=== PATIENT | female | born 1960 | race Caucasian/White ===

== ENCOUNTER 2019-10-28 17:34 | Emergency (ER) | payer MEDICAID, SELFPAY ==
[2019-10-28 17:35] VITALS: BP 119/92; PULSE 80; RESP 18; TEMP 36.9; O2SAT 96; BMI 19.5
--- NOTE | 2019-10-28 17:49 | XR_ITS ---
PROCEDURE: XR CHEST 2V CLINICAL HISTORY: sob COMPARISON: No exams were available for comparison FINDINGS: Moderate emphysematous changes are seen with hyperexpansion lung daniels and flattening and depression of the hemidiaphragms. Patchy ill-defined opacities are seen at the left base and left costophrenic angle. Otherwise the lung daniels are clear. The cardiac silhouette is normal. There is some attenuation of the pulmonary vasculature in the lung periphery. The bony thorax is normal for age. IMPRESSION: Moderate COPD, suspect minimal left lower lobe pneumonia versus atelectasis and suggest clinical correlation. Dictated by: Dr. Miguel Henao MD 10/28/2019 19:[address] Miguel Henao MD in [place] 10/28/2019 19:24
--- NOTE | 2019-10-28 17:50 | HMH.EDSOB ---
ED Disposition Clinical Impression: Acute exacerbation of chronic obstructive airways disease Disposition: Home, Self-Care Condition on Discharge: Good Instructions: DI for Chronic Bronchitis Prescriptions: methylPREDNISolone [Medrol] 4 mg PO DIRECTED #21 pack Prescription Printed Referrals: PCP,No [Primary Care Provider] - - Critical Care Critical Care Time: No Attestation: On , the high probability of a clinically significant, sudden or life threatening deterioration of the following system(s) required my full and direct attention, intervention and personal management. The time I documented below is in addition to time spent performing reported procedures but includes the following listed in this critical care notation. Medical Decision Making - Medical Records Medical records reviewed: Yes: I reviewed the patient's medical records. - Dwayne Inquiry Pt receiving controlled substance: No Vital Signs: 10/28/19 17:35 10/28/19 17:59 Temperature 98.5 F Temperature Source Oral Pulse Rate [Right Radial] 80 80 Respiratory Rate 18 Blood Pressure [Right Arm] 119/92 H 123/80 Blood Pressure Mean [Right Arm] 101 94 Blood Pressure Source [Right Arm] Automatic Cuff Automatic Cuff Blood Pressure Position [Right Arm] Sitting Sitting 02 Sat by Pulse Oximetry 96 97 Oxygen Delivery Method Room Air Room Air - Lab Data Lab Results 10/28/19 18:00: WBC 12.2 H, RBC 4.34, Hgb 13.0, Hct 38.6, MCV 89.0, MCH 29.9, MCHC 33.6, RDW 13.9, Plt Count 354, MPV 7.2 L, Neut % (Auto) 72.9, Lymph % (Auto) 19.6, [place] % (Auto) 4.9, Eos % (Auto) 2.1, Baso % (Auto) 0.4, Neut # (Auto) 8.9 H, Lymph # (Auto) 2.4, [place] # (Auto) 0.6, Eos # (Auto) 0.3, Baso # (Auto) 0.1 10/28/19 18:00: Sodium 140, Potassium 3.6, Chloride 104, Carbon Dioxide 29, Anion Gap 10.6, BUN 16, Creatinine 0.60, Estimated Creat Clear 79, Estimated GFR 102, Est GFR ( Amer) 123, Glucose 103 H, Calcium 9.1, Total Bilirubin 0.4, AST 25, ALT 21, Alkaline Phosphatase 130 H, Troponin I < 0.01, NT-Pro-B Natriuret Pep 92.6, Total Protein 7.7, Albumin 4.1, Globulin 3.6 H, Albumin/Globulin Ratio 1.1 Result diagrams: 10/28/19 18:00 10/28/19 18:00 Orders (Tests/Meds): ED MEDICATIONS Discontinued Medications Generic Name Dose Route Start Last Admin Trade Name Andrzej PRN Reason Stop Dose Admin Dexamethasone Sodium Phosphate 8 mg 10/28/19 18:28 Decadron 4mg/Ml 1ml Vial IM 10/28/19 18:29 ONCE ONE Ketorolac Tromethamine 60 mg 10/28/19 18:27 Toradol 60mg/2ml Vial IM 10/28/19 18:28 ONCE ONE ORDERS Category Date Time Status XR chest 2V Stat Exams 10/28/19 17:49 Taken Arterial Blood Gas Routine RT 10/28/19 18:06 Received Arterial Blood Gas Stat RT 10/28/19 18:05 Ordered - Radiology Data #1 Image(s): Chest Image Reviewed: Yes I reviewed the patient's radiology image Preliminary Findings: Normal/NAD emphysematous changes; no acute process Resp/SOB HPI - General Chief Complaint: Shortness of Breath/Dyspnea Stated Complaint: SOB Time Seen by Provider: 10/28/19 17:50 Mode of Arrival: EMS Limitations: No Limitations Description of Symptoms (Recalled from ER Triage Doc. 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 Pt reports this was intermittent. Pt denies SOA, cough, fever. Pt reports hx of COPD. EMS reports pt was 97% on RA upon their arrival, pt was given a duoneb in route to hospital - History of Present Illness This is a 5-year-old female who presents with intermittent shortness of breath x1 week. Patient reports that her apartment is small poorly ventilated and very warm due to the ambient temperature and lack of central air. She reports occasional wheezing and shortness of breath which is improved nearly resolved with bronchodilators administered by EMS. She denies any chest pain or lower extremity edema. She als
--- NOTE | 2019-10-28 17:51 | PC.NURSE ---
notified RT and Rad of new orders on pt
[2019-10-28 17:59] VITALS: BP 123/80; PULSE 80; O2SAT 97
--- NOTE | 2019-10-28 18:00 | PC.NURSE ---
RT at bedside
--- NOTE | 2019-10-28 18:05 | PC.NURSE ---
Pt to rad.
[2019-10-28 18:14] LABS: Basophils # 0.1 K/mm3 (0-0.2); Basophils % 0.4 % (0.1-2.0); Eosinophils # 0.3 K/mm3 (0.0-0.4); Eosinophils % 2.1 % (0.1-12.0); Hematocrit 38.6 % (37.0-47.0); Lymphocytes # 2.4 K/mm3 (0.7-4.5); Lymphocytes % 19.6 % (10-50); Mean Corpuscular HGB Conc 33.6 g/dL (31.8-35.4); Mean Corpuscular Hemoglobin 29.9 pg (27.0-31.2); Mean Platelet Volume 7.2 fl (7.4-10.4); Monocytes # 0.6 K/mm3 (0.1-1.0); Monocytes % 4.9 % (1.7-9.3); Neutrophils # 8.9 K/mm3 (1.8-7.8); Neutrophils % 72.9 % (37.0-80.0); Platelet Count 354 K/mm3 (142-424); Red Blood Count 4.34 M/mm3 (4.20-5.40); Red Cell Distribution Width 13.9 % (11.5-17.5); White Blood Count 12.2 K/mm3 (4.8-10.8)
[2019-10-28 18:19] LABS: Alanine Aminotransferase 21 U/L (12-78); Albumin Level 4.1 g/dl (3.5-5.0); Albumin/Globulin Ratio 1.1 (1.1-1.8); Alkaline Phosphatase 130 U/L (38-126); Anion Gap 10.6 mEq/L (5-15); Aspartate Amino Transferase 25 U/L (14-36); Bilirubin,Total 0.4 mg/dl (0.2-1.3); Blood Urea Nitrogen 16 mg/dl (7-17); Calcium 9.1 mg/dl (8.4-10.2); Carbon Dioxide 29 mmol/L (22.0-30.0); Chloride 104 mmol/L (98-107); Creatinine Clearance Estimated 79 mL/min (50-200); Estimated Glomerular Filt Rate 102 ml/min (>60); GFR (African American) 123 ML/MIN (>60); Globulin 3.6 g/dL (1.3-3.2); Glucose 103 mg/dl (74-100); Potassium 3.6 mmoL/L (3.5-5.1); Sodium 140 mmol/L (136-145); Total Protein,Serum 7.7 g/dl (6.3-8.2)
[2019-10-28 18:31] LABS: NT Pro Brain Natriuretic Pep. 92.6 pg/mL (0-125); Troponin I < 0.01 ng/ml (0.00-0.034)
[2019-10-28 18:55] VITALS: BP 123/80; PULSE 71; RESP 18; TEMP 36.9; O2SAT 98
[2019-10-29 08:20] LABS: ABG Base Excess -4.7 mmol/L (-2.4-2.3); ABG HCO3 19.4 mmhg (22.0-26.0); ABG Oxygen Saturation 93 % (90-100); ABG PH 7.44 mmol/L (7.35-7.45); ABG TCO2 20.3 mmhg (23-27)
--- NOTE | 2019-10-29 08:35 | PC.NURSE ---
10/28/2019 WHILE CHECKING ON ER TEMP STATION ,I SAW THIS PT SITTING IN THE ER WAITING AREA. I WAS TOLD THAT THIS PT WAS WAITING ON A RIDE.PT IS FROM [place] AND SHE STATED THAT SHE WAS WAITING FOR HER DAUGHTER TO TAKE HER HOME. I WAS TOLD THAT [facility] HAD BEEN CALLED TO TRY TO LOCATE DAUGHTER SINCE PT COULD NOT REMEMBER DAUGHTERS PHONE NUMBER AND THERE WERE NO PHONE NUMBERS INCLUDED ON THIS PTS CHART OF NEXT OF KIN OR WHO TO CONTACT. I CALLED [facility] AND WAS TOLD OFFICER NOT AVAILABLE TO CHECK ON DAUGHTER TO HAVE HER COME TO [facility] BUT THAT THEY HAD FOUND THE DAUGHTERS NUMBER IN THEIR SYSTEM AND HAD NO ANSWER AND THAT THE VOICEMAIL BOX WAS FULL. PERSON AT [facility] STATED WOULD SEND OFFICER WHEN HE WAS AVAILABLE....WHILE ON THE PHONE WITH THEM THERE WAS ANOTHER CALL THAT CAME IN THAT THE DISPATCH SAID WAS FROM THE PHONE NUMBER THEY HAD TRIED FOR THIS PT....SHE STATED THAT THE CALLER TOLD HER THAT THE DAUGHTER WAS ON THE WAY TO PICK HER MOTHER UP.AFTER FEW HOURS ,PT NOTED TO STILL BE IN THE LOBBY.WHILE TALKING WITH HER, SHE SAID SHE THOUGHT SHE HAD TOLD HER DAUGHTER THAT SHE WAS COMING TO [facility]....SHE STATED THAT SHE SOMETIMES GOES TO [facility]. [id number] I SPOKE TO PERSONNEL AT [facility] TO TRY TO GET ANOTHER NAME OR NUMBER THAT I COULD POSSIBLY CALL FOR THIS PT.THEY WERE ABLE TO GET ME THE PHONE NUMBER OF HER MOM.WHEN THAT NUMBER WAS ATTEMPTED ,IT WAS LIKE THE PHONE CALL WAS DISCONNECTED AND WOULD NOT GO THROUGH. I THEN CALLED [facility] AND WAS TOLD THE OFFICER DID GO TO DAUGHTERS APT AND SHE WAS ASLEEP.DAUGHTER TOLD OFFICER THAT SHE COULD NOT PICK HER UP BECAUSE SHE HAS NO CAR AND THAT SHE WAS GOING TO GO BACK TO SLEEP....I TOLD OF THESE DIFFERENT ATTEMPTS.I INFORMED HER THAT IF SHE STILL NEEDED A RIDE BY 7OR 8 ,I COULD SPEAK WITH PERSON IN CARE MANAGEMENT CONCERNING RIDE FOR THIS PT TO RETURN HOME. I SPOKE WITH DIETARY ABOUT GETTING BREAKFAST FOR THIS PT.THEY DID TAKE BREAKFAST TRAY TO HER AT APPROX.[id number] , I DID SPEAK WITH WARNER AND STACIE PEREZ IN CARE MANAGEMENT CONCERNING THIS PT AND HER INABILITY TO GET A RIDE. CHRIS STATED THAT SHE WOULD WORK ON GETTING HER A WAY BACK HOME.
--- NOTE | 2019-10-29 10:37 | SW/DCPLANNER ---
SET UP TRANSPORTATION WITH [facility] FOR THIS PATIENT TO GO [place] WHERE SHE LIVES....
== END 2019-10-28 18:57 | disposition home or self-care (01) ==
PROVIDERS: Emergency Provider Emergency Medicine
DX: J44.9 Chronic obstructive pulmonary disease, unspecified (principal); F17.210 Nicotine dependence, cigarettes, uncomplicated
CPT/HCPCS: 71046; 80053; 82803; 83880; 84484; 85025; 96372; 99283

== ENCOUNTER 2020-01-10 12:38 | Emergency (ER) | payer MEDICAID, SELFPAY ==
[2020-01-10 12:53] VITALS: BP 139/79; PULSE 76; RESP 18; TEMP 37.3; O2SAT 98; BMI 19.5
--- NOTE | 2020-01-10 13:07 | XR_ITS ---
PROCEDURE: XR CHEST 2V Referring Doctor: Shekhar Richmond Patient Age:59Y CLINICAL HISTORY: Cough smoker. Rule out Cov id COMPARISON: CR [id number] LUMBAR SPINE 5 VIEWS from 09/02/2016 CR XR CHEST 2V from 10/28/2019 CR XR SHOULDER LT MIN 2V from 01/10/2020 FINDINGS: Single-view chest performed today and compared to October 2019 CXR There is underlying COPD and emphysematous changes. With generous hyperexpansion bilateral. Heart is normal in size jude and mediastinal structures normal. Normal vascularity. October 2019 study showed coarsening markings at the left lung base. We again see the similar appearance on previous CXR from October. These markings appear slightly more pronounced at the left base today-I suspect is mainly due to the higher contrast technique but there may be subtle progression of interstitial fibrotic changes are and/or interstitial disease since October. There is also more evident blunting at the left CP angle which are reflects small left pleural effusion or some progressive mild pleural thickening. Follow-up PA and lateral chest suggested when feasible There is subtle coarsening of interstitial pattern at the right mid lung-this is in part due to the overlying breast density along with chronic changes but again difficult to exclude a very subtle early infiltrate here since this is a subtle change since prior CXR. IMPRESSION: 1..COPD. Emphysematous changes 2.. Fibrotic changes left lung base were seen in October CXR. Findings today are similar to perhaps slightly more pronounced-in part due to to technique; but question/suspect slight progression of interstitial fibrotic changes or disease here as well, since October 3..Also additional blunting left CP angle reflecting small pleural effusion or additional pleural thickening 4.. Subtle accentuation markings at the right mid lung most likely due to overlapping breast density, but with similar considerations Dictated by: Roberth Mcmahan MD 01/10/2020 14:53 Roberth Mcmahan MD in [place] 01/10/2020 14:53
--- NOTE | 2020-01-10 13:11 | XR_ITS ---
PROCEDURE: XR SHOULDER LT MIN 2V Referring Doctor: Shekhar Richmond Patient Age:59Y CLINICAL INDICATION: pain Left shoulder pain and stiffness but chronic COMPARISON: No exams were available for comparison FINDINGS: Three views left shoulder performed The left shoulder appears intact. The glenohumeral joint relationships are normal. The humeral head and neck intact. Scant hypertrophic changes at the at the well maintained AC joint. Scapula unremarkable. [place] left lung clear IMPRESSION: Left shoulder intact. Glenohumeral joint intact. Only note perhaps scant early hypertrophic changes of developing about the AC joint Dictated by: Roberth Mcmahan MD 01/10/2020 15:02 Roberth Mcmahan MD in [place] 01/10/2020 15:02
--- NOTE | 2020-01-10 13:11 | XR_ITS ---
PROCEDURE: XR HIP RT 2-3V W/PELVIS Referring Doctor: Shekhar Richmond Patient Age:59Y CLINICAL INDICATION: chronic pain COMPARISON: CR SACC SACRUM AND COCCYX from 09/02/2016 FINDINGS: AP and frog-leg view right hip along with AP pelvis performed. No fracture or dislocation is evident. No significant degenerative change. No lytic or blastic change.. The right femoral head and neck are intact and the hip joint spaces well maintained. Of fairly adequate right femoral head by the acetabulum.. Femoral head of normal density and contour. Sacrum SI joints and osseous pelvis appear intact. Scattered phleboliths lower pelvic basin. IMPRESSION: No a remarkable findings. Right hip intact with hip joint space well maintained. Right femoral head and neck intact AP pelvis intact Dictated by: Roberth Mcmahan MD 01/10/2020 14:41 Roberth Mcmahan MD in [place] 01/10/2020 14:41
--- NOTE | 2020-01-10 13:22 | HMH.EDGENADL ---
ED Disposition Clinical Impression: Acute exacerbation of chronic obstructive airways disease, Left shoulder pain Clinical Impression: (Ruled Out): Right shoulder pain Disposition: Home, Self-Care Condition on Discharge: Fair Referrals: PCP,No [Primary Care Provider] - - Critical Care Critical Care Time: No Attestation: On 01/10/20, the high probability of a clinically significant, sudden or life threatening deterioration of the following system(s) required my full and direct attention, intervention and personal management. The time I documented below is in addition to time spent performing reported procedures but includes the following listed in this critical care notation. Medical Decision Making - Medical Records Medical records reviewed: Yes: I reviewed the patient's medical records. - Dwayne Inquiry Pt receiving controlled substance: No Vital Signs: 01/10/20 12:53 Temperature 99.1 F Temperature Source Oral Pulse Rate [Radial] 76 Respiratory Rate 18 Blood Pressure [Right Arm] 139/79 Blood Pressure Mean [Right Arm] 99 Blood Pressure Position [Right Arm] Sitting 02 Sat by Pulse Oximetry 98 Oxygen Delivery Method Room Air - Lab Data Lab results reviewed: Yes: I reviewed the patient's lab results. Orders (Tests/Meds): ED MEDICATIONS Discontinued Medications Generic Name Dose Route Start Last Admin Trade Name Freq PRN Reason Stop Dose Admin Albuterol/Ipratropium 2 puff 01/10/20 13:09 01/10/20 13:18 Combivent 20mcg/100mcg Respimat Inhaler IH 01/10/20 13:10 2 puff ONCE ONE Administration Ketorolac Tromethamine 30 mg 01/10/20 13:12 01/10/20 13:18 Ketorolac 30mg/Ml Vial IM 01/10/20 13:13 30 mg ONCE ONE Administration Methylprednisolone Sodium Succinate 125 mg 01/10/20 13:09 01/10/20 13:18 Methylprednisolone Sod Succ 125mg Vial IM 01/10/20 13:10 125 mg ONCE ONE Administration Miscellaneous 1 unit 01/10/20 13:09 01/10/20 13:19 Aerochamber/Optihaler MC 01/10/20 13:10 1 unit ONCE ONE Administration ORDERS Category Date Time Status Hip XR right minimum 2 views [XR hip RT 2-3V w/pelvis] Exams 01/10/20 13:11 Ordered Stat Shoulder XR left minimum 2 views [XR shoulder LT min 2V Exams 01/10/20 13:11 Ordered ] Stat XR chest 2V Stat Exams 01/10/20 13:07 Ordered Covid-19 Nasal PCR ([facility]) Routine Lab 01/10/20 13:31 Received Medical Decision Narrative: She is a 59-year-old female who presents the emergency department today with flulike symptoms and chronic pain. Well-appearing on exam. Stable on arrival. X-rays, Toradol, steroids, COVID swab ordered. Skill skeletal x-ray is nonactionable. Chest x-ray concerning for possible left lower lobe consolidation. Given prescription for amoxicillin and Medrol Dosepak. Return precautions given. General Adult HPI - General Chief complaint: PAIN Stated complaint: pain all over body Time Seen by Provider: 01/10/20 13:00 Mode of Arrival: Ambulatory Limitations: No Limitations Description of Symptoms (Recalled from ER Triage Doc. by RN): TO ED PER PVT CAR WITH MULTIPLE C/O. PT C/O ANTONETTE SHOULDER PAIN, RT HIP PAIN AND PAIN ALL OVER X YEARS BUT WORSE OVER THE LAST WEEK STATES UNABLE TO SLEEP DUE TO PAIN. PT ALSO, C/O RUNNY NOSE, COUGH I THINK I HAVE BRONCHITIS . PT STATES SHE HAS TAKEN BACTRIM X 3 DOSES, A RESP TX AND SOME NEUROTIN FROM A FRIEND. - History of Present Illness HPI narrative: Patient is a 59-year-old female with a history of COPD who presents the emergency department today with flulike symptoms and joint pain. Patient states she has had left shoulder and right hip pain for many years. She also states of the last 5 days she has had progressively worsening productive cough and some mild dyspnea. No fevers. Complaining of generalized body pain as well. No chest pain. No other complaints. - Related Data Previous Rx's Medication Instructions Recorded methylPREDNISolone [Me
--- NOTE | 2020-01-10 14:12 | PC.NURSE ---
Rad at bedside
[2020-01-10 14:36] VITALS: BP 123/74; PULSE 87; RESP 18; TEMP 36.6; O2SAT 96
== END 2020-01-10 14:38 | disposition home or self-care (01) ==
PROVIDERS: Emergency Provider Emergency Medicine
DX: J44.1 Chronic obstructive pulmonary disease with (acute) exacerbation (principal); M25.512 Pain in left shoulder; Z20.828 Contact with and (suspected) exposure to other viral communicable diseases; F17.210 Nicotine dependence, cigarettes, uncomplicated
CPT/HCPCS: 71046; 73030; 73502; 96372; 99282; U0003

== ENCOUNTER 2024-04-08 11:20 | Emergency (ER) | payer MEDICAID, SELFPAY ==
[2024-04-08 11:20] VITALS: BP 118/69; PULSE 82; RESP 18; TEMP 36.7; O2SAT 98; BMI 18.9
--- NOTE | 2024-04-08 11:20 | PC.NURSE ---
FSBS is 155 at this time.
--- NOTE | 2024-04-08 11:23 | ECG_ITS ---
APPROVED REPORT Exam: Resting ECG HR:77 bpm ECG Measurements Heart Rate 77 AXES UT 120 P 80 QRSd 90 QRS 79 QT 362 T 28 QTc 394 Conclusion SINUS RHYTHM WITH SINUS ARRHYTHMIA POSSIBLE RIGHT ATRIAL ENLARGEMENT [0.25mV P-WAVE] LEFT ATRIAL ENLARGEMENT [-0.15mV P-WAVE IN V1/V2] ST DEVIATION AND MODERATE T-WAVE ABNORMALITY, CONSIDER ANTERIOR ISCHEMIA [-0.1+ mV T-WAVE IN V3/V4] ABNORMAL ECG UNCONFIRMED REPORT Electronically signed by : Diego Gonzalez, 04/09/2024 15:33:34
[2024-04-08 11:28] VITALS: BP 118/69; PULSE 89; RESP 14; O2SAT 96
[2024-04-08 11:37] VITALS: BP 129/97
--- NOTE | 2024-04-08 11:39 | CT_ITS ---
PROCEDURE INFORMATION: Exam: CTA Head With Contrast, Arteriography Exam date and time: 04/08/2024 12:05 PM Age: 63 years old Clinical indication: Other: Left face and lue paresthesias TECHNIQUE: Imaging protocol: Computed tomographic angiography of the head with contrast. Exam focused on the arteries. 3D rendering (Not supervised by radiologist): MIP and/or 3D reconstructed images were created by the technologist. Radiation optimization: All CT scans at this facility use at least one of these dose optimization techniques: automated exposure control; mA and/or kV adjustment per patient size (includes targeted exams where dose is matched to clinical indication); or iterative reconstruction. Contrast material: ISOVUE 370; Contrast volume: 80 ml; Contrast route: INTRAVENOUS (IV); COMPARISON: CT HEAD/BRAIN WO CON 04/08/2024 12:02 PM FINDINGS: ANTERIOR CIRCULATION: Right internal carotid artery: Intracranial segment is patent with no significant stenosis. No aneurysm. Right middle cerebral artery: No occlusion or significant stenosis. No aneurysm. Right anterior cerebral artery: No occlusion or significant stenosis. No aneurysm. Left internal carotid artery: Intracranial segment is patent with no significant stenosis. No aneurysm. Left middle cerebral artery: No occlusion or significant stenosis. No aneurysm. Left anterior cerebral artery: No occlusion or significant stenosis. No aneurysm. POSTERIOR CIRCULATION: Right vertebral artery: No occlusion or significant stenosis. No aneurysm. Left vertebral artery: No occlusion or significant stenosis. No aneurysm. Basilar artery: No occlusion or significant stenosis. No aneurysm. Right posterior cerebral artery: There is origin of the right posterior cerebral artery. There is a very small right P1 segment Impression. Left posterior cerebral artery: No occlusion or significant stenosis. No aneurysm. Veins: There is no evidence of venous sinus thrombosis. Brain: There is no evidence of intracranial large vessel stenosis or occlusion. Cerebral ventricles: No ventriculomegaly. Bones/joints: Unremarkable. No acute fracture. Soft tissues: Unremarkable. IMPRESSION: 1. There is no evidence of intracranial large vessel stenosis or occlusion. 2. There is no evidence of venous sinus thrombosis.
--- NOTE | 2024-04-08 11:39 | CT_ITS ---
PROCEDURE INFORMATION: Exam: CT Head Without Contrast Exam date and time: 04/08/2024 12:02 PM Age: 63 years old Clinical indication: Other: Left face and lue paresthesias TECHNIQUE: Imaging protocol: Computed tomography of the head without contrast. Radiation optimization: All CT scans at this facility use at least one of these dose optimization techniques: automated exposure control; mA and/or kV adjustment per patient size (includes targeted exams where dose is matched to clinical indication); or iterative reconstruction. COMPARISON: No relevant prior studies available. FINDINGS: Brain: Normal. No hemorrhage. Unremarkable white matter. No mass effect. Cerebral ventricles: No ventriculomegaly. Paranasal sinuses: Visualized sinuses are unremarkable. No fluid levels. Mastoid air cells: Visualized mastoid air cells are well aerated. Bones: Unremarkable. No acute fracture. Soft tissues: Unremarkable. Vasculature: The vasculature demonstrates diffuse mild atherosclerotic calcification. IMPRESSION: No acute intracranial process is identified. ASSESSMENT: ASPECTS ([place] Stroke Program Early CT Score) is 10.
--- NOTE | 2024-04-08 11:39 | CT_ITS ---
PROCEDURE INFORMATION: Exam: CTA Neck With Contrast Exam date and time: 04/08/2024 12:05 PM Age: 63 years old Clinical indication: Other: Left face and lue paresthesias TECHNIQUE: Imaging protocol: Computed tomographic angiography of the neck with contrast. Exam focused on the cervical segments of the vasculature. 3D rendering (Not supervised by radiologist): MIP and/or 3D reconstructed images were created by the technologist. Radiation optimization: All CT scans at this facility use at least one of these dose optimization techniques: automated exposure control; mA and/or kV adjustment per patient size (includes targeted exams where dose is matched to clinical indication); or iterative reconstruction. Contrast material: ISOVUE 370; Contrast volume: 80 ml; Contrast route: INTRAVENOUS (IV); COMPARISON: CT ANGIO HEAD 04/08/2024 12:05 PM FINDINGS: Right common carotid artery: No stenosis. No dissection or occlusion. Right internal carotid artery: No stenosis of the extracranial segment. No dissection or occlusion. Right external carotid artery: No occlusion or stenosis of the origin. Left common carotid artery: No stenosis. No dissection or occlusion. Left internal carotid artery: No stenosis of the extracranial segment. No dissection or occlusion. Left external carotid artery: No occlusion or stenosis of the origin. Right vertebral artery: There is a non dominant right vertebral artery with no evidence of dissection or stenosis. Left vertebral artery: There is a dominant left vertebral artery with no evidence of dissection or stenosis. Thyroid: The thyroid appears normal. Teeth: The patient is edentulous. Soft tissues: Normal. No significant soft tissue swelling. Bones/joints: The spine demonstrates mild degenerative changes at multiple levels. There is moderate foraminal compromise at mid cervical levels C4 through C6. Lungs: The visualized portions of the lung apices are normal. IMPRESSION: 1. There is no evidence of brachiocephalic arterial pathology. 2. There is a dominant left vertebral artery with no evidence of dissection or stenosis. 3. There is a non dominant right vertebral artery with no evidence of dissection or stenosis. REFERENCES: NASCET CRITERIA. The degree of stenosis in the cervical segment of the internal carotid artery is based on NASCET criteria. Normal is no stenosis. Mild is less than 50% stenosis. Moderate is 50-69% stenosis. Severe is 70% to 99% stenosis. Total occlusion is no detectable patent lumen.
--- NOTE | 2024-04-08 11:41 | ED_ITS ---
Discharge Plan Disposition Patient Disposition: Home, Self-Care Prescriptions Prescriptions: New hydroxyzine pamoate [Vistaril] 25 mg capsule 25 mg PO Q8H PRN (Reason: anxiety) 7 Days Qty: 21 0RF No Action amoxicillin-pot clavulanate 1 EACH tablet 1 tab PO BID Qty: 14 0RF prednisone 20 MG tablet 20 mg PO BID 5 Days Qty: 10 0RF methylprednisolone 4 MG tablets,dose pack 4 mg PO DIRECTED Qty: 21 0RF Rx Instructions: take as directed on package instructions Clinical Impressions Clinical Impression: Paresthesias, Anxiety Print Language Print Language: Lao Discharge ED Provider: Etienne Gonzalez General Adult HPI General Chief complaint: Anxiety Stated complaint: LEFT SIDE NUMBNESS Time Seen by Provider: 04/08/24 11:29 Mode of Arrival: EMS Source of Information: Patient and EMS Limitations: No Limitations Description of Symptoms (Recalled from ER Triage Doc. by RN): PT BROUGHT VIA EMS FOR LEFT SIDED NUMBNESS, INTERMITTENT FOR 3 DAYS, WORSE TODAY. PT REPORTS SEVERAL HOME STRESSORS INCREASING HER ANXIETY. SHE STATES SHE FEELS VERY ANXIOUS. HAS BEEN ARGUING WITH DAUGHTER. DOES NOT TAKE ANY MEDICATIONS FOR ANXIETY OR HER DEPRESSION. 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 NO DEFICITS NOTED History of Present Illness HPI narrative: Patient is a 63-year-old female with a history of COPD and untreated hepatitis C who presents today with left facial and left upper extremity paresthesias. She states she has been undergoing a significant amount of stress last several years including for close family members who have including her ex- and 2 of her children. And yesterday she had one of her children lose all 5 of her children from a custody standpoint. She also has been having significant arguments with her remaining child all of this is adding to severe distress which she believes is the cause of her symptoms today. She has since calm down and states that her paresthesias have significantly improved she denies any weakness changes in vision coordination or other neurologic complaints. She has a history of injection drug use but has not used for over 1.5 years. Related Data Previous Rx's ?Medication ?Instructions ?Recorded methylprednisolone 4 mg tablets in 4 mg PO DIRECTED ##21 10/28/19 a dose pack amoxicillin 875 mg-potassium 1 tab PO BID #14 tabs 01/10/20 clavulanate 125 mg tablet prednisone 20 mg tablet 20 mg PO BID 5 days #10 tabs 01/10/20 hydroxyzine pamoate 25 mg capsule 25 mg PO Q8H PRN anxiety 7 days 04/08/24 (Vistaril) #21 caps Allergies Allergy/AdvReac Type Severity Reaction Status Date / Time No Known Allergies Allergy Verified 10/28/19 17:50 [facility] Disclaimer: The information contained in this section may have been updated after the patient was seen, as this information can be updated by other users. Social History Smoking Status: Never smoker alcohol intake: never substance use type: denies use current occupational status: other Travel in the last 8 weeks: None household members: other housing: other Have you lived/traveled outside [place] in past 30 days?: No Contact w/someone who lives/traveled outside [place] past 30 days?: No Exposure to someone with infectious disease in past 14 days?: No Do you have a fever (greater than 100.4 F or 38 C)?: No Have you tested positive for COVID-19: No Exposed to someone with COVID-19 in past 14 days?: No Do you have a sore throat?: No Do you have a cough?: No Do you have any weakness?: No Do you have any diarrhea?: No Are you experiencing any unusual bleeding?: No Do you have any muscle aches/pain?: No Do you have any abdominal pain?: No Are you experiencing loss of taste or smell?: No Other Medical History Have you received the Flu Vaccine for this season: No Have you received the Pneumonia Vaccine: No ROS Obtained: Yes All systems reviewed & no additional complaints except as documented Physical Exam General General appearance: alert and in no apparent distress Respiratory Respiratory exam: Present normal lung sounds bilaterally and respiratory distress Cardiovascular Cardiovascular exam: Present regular rate and normal rhythm Neurological Exam Neurological exam: Present alert, oriented X3, CN II-XII intact and normal gait; Absent motor sensory deficit Medical Decision Making Medical Records Screening: Per USPSTF and CDC recommendations, given the prevalence of disease in our region, it is our hospital?s policy to screen for HIV and viral Hepatitis for all patients aged 18 and over and those with ongoing risk factors. Dwayne Inquiry Pt receiving controlled substance: No Vital Signs: 04/08/24 11:20 04/08/24 11:28 04/08/24 11:37 Temperature 98.0 F Temperature Source Oral Pulse Rate 89 Pulse Rate [Apical] 82 Respiratory Rate 18 14 Blood Pressure 118/69 129/97 H Blood Pressure [Left Arm] 118/69 Blood Pressure Mean 114 Blood Pressure Mean [Left Arm] 85 Blood Pressure Source [Left Arm] Automatic Cuff Blood Pressure Position [Left Arm] Sitting 02 Sat by Pulse Oximetry 98 96 Oxygen Delivery Method Room Air 04/08/24 11:45 Temperature Temperature Source Pulse Rate 78 Pulse Rate [Apical] Respiratory Rate 14 Blood Pressure Blood Pressure [Left Arm] Blood Pressure Mean Blood Pressure Mean [Left Arm] Blood Pressure Source [Left Arm] Blood Pressure Position [Left Arm] 02 Sat by Pulse Oximetry 97 Oxygen Delivery Method Lab Data Lab results reviewed: Yes I reviewed the patient's lab results. Lab Results 04/08/24 11:25: WBC 7.3, RBC 4.92, Hgb 14.6, Hct 43.1, MCV 87.6, MCH 29.7, MCHC 33.9, RDW 13.5, Plt Count 418, MPV 9.1, Neut % (Auto) 61.0, Lymph % (Auto) 30.4, [place] % (Auto) 5.9, Eos % (Auto) 1.9, Baso % (Auto) 0.7, Neut # (Auto) 4.5, Lymph # (Auto) 2.2, [place] # (Auto) 0.4, Eos # (Auto) 0.1, Baso # (Auto) 0.1, PT 10.3, INR 0.91, Sodium 135 L, Potassium 3.7, Chloride 104, Carbon Dioxide 23, Anion Gap 11.7, BUN 14, Creatinine 0.70, Estimated Creat Clear 44, Estimated GFR 84, Est GFR ( Amer) 102, Glucose 149 H, Calcium 9.5, Total Bilirubin 0.7, AST 36, ALT 25, Alkaline Phosphatase 102, Troponin I < 0.01, Total Protein 7.3, Albumin 4.2, Globulin 3.1, Albumin/Globulin Ratio 1.4, HIV Ag/Ab Combo Qual Negative 04/08/24 11:25 04/08/24 11:25 Orders (Tests/Meds): ED MEDICATIONS Generic Name Dose Route Start Last Admin Trade Name Freq PRN Reason Stop Dose Admin Sodium Chloride 10 ml 04/08/24 11:39 04/08/24 11:47 Sodium Chloride 0.9% 10ml Vial IV 05/08/24 11:38 10 ml NEEDED PRN Administration to Dilute Lorazepam inj Discontinued Medications Generic Name Dose Route Start Last Admin Trade Name Andrzej PRN Reason Stop Dose Admin Sodium Chloride 1,000 mls @ 999 mls/hr 04/08/24 11:45 04/08/24 11:47 Sod Chlor 0.9% 1000ml Bag IV 04/08/24 12:45 999 mls/hr .Q1H1M LYNN Administration Iopamidol 80 ml 04/08/24 12:08 04/08/24 12:09 Iopamidol-370 (76%);100ml Bottle IV 04/08/24 12:09 80 ml ONCE ONE Administration Lorazepam 1 mg 04/08/24 11:39 04/08/24 11:47 Lorazepam 2mg/Ml Vial IV 04/08/24 11:40 1 mg ONCE ONE Administration Sodium Chloride 10 ml 04/08/24 12:08 04/08/24 12:09 Sodium Chloride 0.9% 10ml Syr (Rad Only) IV 04/08/24 12:09 10 ml ONCE ONE Administration Sodium Chloride 50 ml 04/08/24 12:08 04/08/24 12:08 0.9 % Sodium Chloride 50 Ml Vial IV 04/08/24 12:09 50 ml ONCE ONE Administration ORDERS Category Date Time Status CT angio head Stat Cat Scan 04/08/24 11:[address] angio neck Stat Cat Scan 04/08/24 11:[address] head/brain wo con Stat Cat Scan 04/08/24 11:39 Completed CBC w/Auto Diff [Complete Blood Count Auto Diff] Stat Lab 04/08/24 11:25 Completed CMP [Comprehensive Metabolic Panel] Stat Lab 04/08/24 11:25 Completed HCV RNA PCR, Quant Stat Lab 04/08/24 11:25 Received HIV Combo Stat Lab 04/08/24 11:25 Completed PT INR [Prothrombin Time INR] Stat Lab 04/08/24 11:25 Completed Trop I [Troponin I] Stat Lab 04/08/24 11:25 Completed Troponin I Q3H Lab 04/08/24 14:45 Ordered Troponin I Q3H Lab 04/08/24 17:45 Ordered Medical Decision Narrative: 63-year-old tearful patient with a normal neurologic exam presents today with paresthesias in the left face and left upper extremity. Most likely secondary to hyperventilation and stress but given the focality of this is possible that this is a focal abnormality on her cerebrovascular region. Will get a CT scan of her head and CTA of her head and neck for further evaluation. Most likely her symptoms are secondary to anxiety therefore I will give IV Ativan and IV fluids and reassess. Additionally she has a history of hepatitis C that is been untreated quantitative HCV PCR has been sent and I have contacted the hepatitis C links to post acute care registered nurse about this patient's case to follow-up on. CT scans performed which I personally interpreted which show no evidence of intracranial or vascular pathology. Patient very calm and appears much better on reassessment hydroxyzine has been prescribed she was discharged in improved and stable condition no emergent medical condition identified Critical Care Critical Care Time Critical Care Time: No
[2024-04-08 11:45] VITALS: PULSE 78; RESP 14; O2SAT 97
[2024-04-08] MEDS: LORazepam 2MG/ML VIAL 1 MG IV (11:47)
[2024-04-08] MEDS: SODIUM CHLORIDE 0.9% 10ML VIAL 10 ML IV (11:47)
[2024-04-08] MEDS: 0.9 % SODIUM CHLORIDE 1000ML 1,000 ML 999 ML IV (11:47)
[2024-04-08 11:51] LABS: Basophils # 0.1 K/mm3 (0-0.2); Basophils % 0.7 % (0.1-2.0); Eosinophils # 0.1 K/mm3 (0.0-0.4); Eosinophils % 1.9 % (0.1-12.0); Hematocrit 43.1 % (37.0-47.0); Hemoglobin 14.6 g/dL (12.2-16.2); Lymphocytes # 2.2 K/mm3 (0.7-4.5); Lymphocytes % 30.4 % (10-50); Mean Corpuscular HGB Conc 33.9 g/dL (31.8-35.4); Mean Corpuscular Hemoglobin 29.7 pg (27.0-31.2); Mean Corpuscular Volume 87.6 fl (81-99); Mean Platelet Volume 9.1 fl (7.4-10.4); Monocytes # 0.4 K/mm3 (0.1-1.0); Monocytes % 5.9 % (1.7-9.3); Neutrophils # 4.5 K/mm3 (1.8-7.8); Platelet Count 418 K/mm3 (142-424); Red Blood Count 4.92 M/mm3 (4.20-5.40); Red Cell Distribution Width 13.5 % (11.5-17.5); White Blood Count 7.3 K/mm3 (4.8-10.8)
[2024-04-08 11:53] LABS: Albumin Level 4.2 g/dl (3.5-5.0); Chloride 104 mmol/L (98-107); Potassium 3.7 mmoL/L (3.5-5.1); Sodium 135 mmol/L (136-145)
[2024-04-08 11:55] LABS: Blood Urea Nitrogen 14 mg/dl (7-17); Creatinine Clearance Estimated 44 mL/min (50-200); Estimated Glomerular Filt Rate 84 ml/min (>60); GFR (African American) 102 ML/MIN (>60)
[2024-04-08 11:56] LABS: Alanine Aminotransferase 25 U/L (12-78); Albumin/Globulin Ratio 1.4 (1.1-1.8); Alkaline Phosphatase 102 U/L (38-126); Anion Gap 11.7 mEq/L (5-15); Aspartate Amino Transferase 36 U/L (14-36); Bilirubin,Total 0.7 mg/dl (0.2-1.3); Calcium 9.5 mg/dl (8.4-10.2); Carbon Dioxide 23 mmol/L (22.0-30.0); Globulin 3.1 g/dL (1.3-3.2); Glucose 149 mg/dl (74-100); Total Protein,Serum 7.3 g/dl (6.3-8.2)
[2024-04-08 11:57] LABS: INR 0.91 (0.9-1.1); Prothrombin Time 10.3 seconds (10.1-12.5)
[2024-04-08] MEDS: 0.9 % SODIUM CHLORIDE 50 ML VIAL IV (12:08)
[2024-04-08] MEDS: SODIUM CHLORIDE 0.9% 10ML SYR (RAD ONLY) 10 ML IV (12:09)
[2024-04-08] MEDS: IOPAMIDOL-370 (76%);100ML BOTTLE 80 ML IV (12:09)
[2024-04-08 12:20] LABS: Troponin I < 0.01 ng/ml (0.00-0.034)
[2024-04-08 12:37] LABS: HIV Combo NEGATIVE (Negative)
[2024-04-08 13:00] VITALS: BP 128/78; PULSE 80; RESP 18; TEMP 36.8; O2SAT 98
--- NOTE | 2024-04-08 13:08 | PC.NURSE ---
PT PROVIDED LUNCH TRAY
== END 2024-04-08 13:59 | disposition home or self-care (01) ==
PROVIDERS: Emergency Provider Student in an Organized Health Care Education/Training Program
DX: F41.9 Anxiety disorder, unspecified (principal); R20.2 Paresthesia of skin
CPT/HCPCS: 70450; 70496; 70498; 80053; 84484; 85025; 85610; 87389; 87522; 93005; 96361; 96374; 99285; J2060; J7030; Q9967